=== PATIENT | female | born 1970 | race Asian ===

== ENCOUNTER 2016-08-25 10:14 | Inpatient (IN) | payer OTHER ==
[~2016-08-25] VITALS: Ht 157.5 cm; Wt 57.4 kg
[2016-08-25 10:52] LABS: MEAN CORPUSCULAR HEMOGLOBIN 29.9 pg (27.0-33.0); MEAN CORPUSCULAR HGB CONC 33.1 g/dl (32.0-36.5); MEAN CORPUSCULAR VOLUME 90.1 fl (80.0-96.0); RED CELL DISTRIBUTION WIDTH 12.5 % (11.5-14.5); WHITE BLOOD COUNT 4.2 K/mm3 (4.0-10.0)
[2016-08-25 11:03] LABS: CONTROL LINE INT CTR LINE PRESENT; METHADONE URINE NEGATIVE (NEGATIVE); TRICYCLIC ANTIDEPRESS URINE NEGATIVE (NEGATIVE)
[2016-08-25 11:11] LABS: CONTROL LINE HCG INT CTR LINE PRESENT
[2016-08-25 11:26] LABS: ALBUMIN 4.1 GM/DL (3.2-5.2); ALBUMIN/GLOBULIN RATIO 1.17 (1.00-1.93); ALKALINE PHOSPHATASE 51 U/L (45-117); ALT/SGPT 17 U/L (12-78); ANION GAP 4 MEQ/L (8-16); AST/SGOT 15 U/L (15-37); BILIRUBIN,DIRECT 0.1 MG/DL (0.0-0.2); BILIRUBIN,TOTAL 0.4 MG/DL (0.2-1.0); BLOOD UREA NITROGEN 8 MG/DL (7-18); CALCIUM LEVEL 8.8 MG/DL (8.5-10.1); CARBON DIOXIDE LEVEL 31 MEQ/L (21-32); CHLORIDE LEVEL 108 MEQ/L (98-107); CREATININE FOR GFR 0.77 MG/DL (0.55-1.02); GLOMERULAR FILTRATION RATE > 60.0 (>58); GLUCOSE, FASTING 84 MG/DL (70-105); POTASSIUM SERUM 4.1 MEQ/L (3.5-5.1); SODIUM LEVEL 143 MEQ/L (136-145); TOTAL PROTEIN 7.6 GM/DL (6.4-8.2)
[2016-08-25] MEDS ORDERED: VITATAB11 PO (13:14)
[2016-08-25] MEDS ORDERED: FISH1000 PO (13:14)
[2016-08-25] MEDS ORDERED: VITA-121 PO (13:14)
[2016-08-25] MEDS ORDERED: LEVO137T2 PO (13:14)
[2016-08-25] MEDS ORDERED: LOTR10CA PO (13:14)
[2016-08-25] MEDS ORDERED: BUPR300T34 PO (13:14)
--- NOTE | 2016-08-25 14:03 | EDDOCDS ---
Nurse's Notes [facility] Name: Bennie Hatfield Age: 45 yrs Sex: Female : 1970 Arrival Date: 08/25/2016 Time: 10:14 Bed [facility] Private MD: MARYLOU Villalobos Diagnosis: Adjustment disorder, unspecified Presentation: 08/25 10:17 Presenting complaint: Patient states: Depressed with suicidal thoughts. Mental Health mlb1 Triage Level: Level 2: The patient displays active suicidal ideations. Adult Sepsis Screening: The patient does not have new or worsening altered mentation. Patient's respiratory rate is less than 22. Systolic blood pressure is greater than 100. Patient has a qSOFA score of 0- Negative Sepsis Screen. Mental Health Triage Level: Level 2:. Suicide/Homicide risk assessment- The patient admits to and/or has been reported to be having suicidal ideations. The patient reports that he/she has not been admitted to an inpatient mental health facility in the last 30 days. The patient reports that he/she does not have a recent or current history of substance abuse. The patient reports that he/she has no prior history of suicide attempt and/or organized plan. The patient reports that he/she has not experienced a significant life altering event in the last 30 days. The patient reports that he/she lacks adequate social support. The patient reports he/she has no significant chronic medical condition(s). Status: The patient is a dependent. Transition of care: patient was not received from another setting of care. 10:17 Acuity: CORY Level 3 mlb1 10:17 Method Of Arrival: Walkin/Carried/Asstd mlb1 Triage Assessment: 10:20 General: Appears distressed, Behavior is anxious, cooperative. Pain: Denies pain. HIV mlb1 screening NA for this visit Offered previously. EDITOR DEPARTMENT: 10:20 LMP N/A - Irregular menses mlb1 Historical: - Allergies: SHELLFISH; - Home Meds: 1. Wellbutrin 300 mg Oral tab 1 tab daily 2. Synthroid 137 mcg Oral tab 1 tab once daily 3. Lotrel Unknown Oral once daily - PMHx: Depression; Hypothyroidism; Hypertension; - PSHx: Thyroidectomy; Cataract Surgery- Bilateral; - Social history: Smoking status: Patient uses tobacco products, current some day smoker. No barriers to communication noted, The patient speaks fluent Iranian, Speaks appropriately for age. - Family history: Not pertinent. - : The pt / caregiver states he / she is not on anticoagulants. Home medication list is obtained from the patient. - Exposure Risk Screening:: None identified. Screenin:47 Screening information is obtained from the patient. Fall risk: No risks identified. me3 Assistance ADL's: requires no assistance with activities of daily living. Abuse/DV Screen: The patient / caregiver reports he/she is:. Nutritional screening: No deficits noted. Advance Directives: Currently, there is no health care proxy. home support is adequate. Assessment: 10:46 General: Appears in no apparent distress, comfortable, Behavior is anxious, me3 cooperative, S/O at bedside. Respiratory: No deficits noted. Airway is patent Respiratory effort is even, unlabored, Respiratory pattern is regular. 11:41 General: Appears in no apparent distress, comfortable, Behavior is cooperative. me3 Respiratory: No deficits noted. Airway is patent Respiratory effort is even, unlabored. 12:27 General: Appears in no apparent distress, comfortable, Behavior is cooperative. me3 Respiratory: No deficits noted. Airway is patent Respiratory effort is even, unlabored. Derm: Skin is pink, warm & dry. 13:19 General: Appears in no apparent distress, comfortable, Behavior is appropriate for age, me3 cooperative. Respiratory: No deficits noted. Airway is patent Respiratory effort is even, unlabored. Derm: Skin is pink, warm & dry. Mental Health Eval: 11:43 Mental health consult is initiated at 11:30. Status: The patient is a ml4 dependent. [facility] Behavioral Health: The patient is not an established patient of [facility] Behavioral Health. Referral Information: Evaluation referral is generated by a relative; spouse, The patient was referred for evaluation because pt expressed SI (no plan) during a verbal altercation with spouse . Subjective: The patients chief complaint is pt states, "I'm here because my made me come in for suicidal thoughts." Pt reports over the past 2 months she's been having fleeting thoughts of suicide, however thoughts are becoming more severe. Admits losing her best friend Jul 01, 2016 and suspects it's from suicide, yet still investigating. She reports attempting to grieve, however feels trapped and states, "I just can't do it anymore". She notes having the urge to hang herself directly following friend's , but did not attempt. Other stressors are related to spouse who is currently in the process of being med-boarded out of the for PTSD. She feels she is not strong enough to support him and suicidal thoughts are becoming more persistent with no plan. Pt denies SI currently and states, "I'm just depressed." She denies wanting to follow-through her suicidal thoughts due to her children( ages 12 and 14) who keep her from killing herself. Children currently reside with their Father in [place]. . Delusions are denied. Patient's mood is depressed, Hallucinations are denied. Mental Health history: depression, Mental Health Admissions: None. Current Outpatient Mental Health Services: Psychiatrist / Agency: Dr. Roblero/Villalobos . previously seeking tx with Solomon Mac at [facility], however completed program successfully. . Current living environment is Family / Home Support: adequate with spouse The patient currently lives with his / her spouse, . The patient is . Patient presents to Emergency Department with the following symptoms within the past 2 weeks: agitation, anger, anxiety, depressed mood, feelings of helplessness/hopelessness, marital problem, poor impulse control, sleep disturbance - insomnia, suicidal ideation with no plan. Substance abuse: Patient uses tobacco less than a 1/2 a pack Frequency daily. Mental status exam: Patients appearance is appropriate, Patient's behavior is cooperative, Speech is normal. Affect is flat. Mood is appropriate. Hallucinations are denied. Appetite is normal. Memory is good. Energy level is normal. Content of thought is depressive. due to recent thoughts of suicide Thought process is intact. Cognitive level is oriented to person, place, time and situation Patient's insight is fair. Judgement is fair. Rapport with interviewer is good. Suicidal Ideation is not present. Homicidal ideation is denied. Disposition: Medically cleared for disposition by Kye Harman MD. Narrative: Awaiting psychiatric consult... 12:27 Disposition: Psychiatric Consult is performed by phone with Dr Ulises Guaman MD. [facility] ml4 Admission Criteria: The patient requires continuous observation and/or control to protect self, others or property. The patient's care requires a multi-modal treatment plan under close supervision and coordination due to the complexity and severity of the patient's symptoms. The patient requires administration and monitoring of psychoactive medications by skilled medical providers due to the side effects of the psychoactive medications or significant dosage adjustments. Legal Status: Patient's legal status will be Emergency admission: 39. [place] Safe Act: [place] Safe [place] is not applicable because the patient does not display any suicidal or homicidal ideations and does not pose a risk to self or others. DSM-V Differential Diagnosis: Adjustment Disorder (F43.2) unspecified (F43.20). Insurance Pre-Certification: Not Required, [employer] . Family Notification: Family notified of admission to [facility], Notification was given to Spouse . Narrative: Notice of Status and Rights, FAQ, and Bill of Rights was given at bedside. Awaiting: transfer to [facility]. Vital Signs: 10:16 BP 138 / 68; Pulse 77; Resp 16; Temp 96.9; Pulse Ox 100% ; Weight 58.06 kg; Height 5 cmb ft. 2 in. (157.48 cm); Pain 0/10; 14:01 BP 130 / 84; Pulse 68; Resp 16; Temp 99(TE); Pulse Ox 98% ; me3 10:16 Body Mass Index 23.41 (58.06 kg, 157.48 cm) b Vitals: 10:16 Log In Time: August 25, 2016 at 10:10. b ED Course: 10:15 Patient visited by Leigh Painting. cmb 10:15 Patient moved to Waiting cmb 10:16 Griselda [facility] is Private Physician. cmb 10:16 Patient visited by Khurram Grant RN. mlb1 10:16 RN notified that patient meets Red Flag criteria. cmb 10:18 Triage Initiated mlb1 10:21 Patient visited by Khurram Grant RN. mlb1 10:21 Patient moved to [facility] mlb1 10:22 Kye Harman MD is Attending Physician. br1 10:27 Pt greeted and oriented to ED. Patient advised of names of staff involved in care, pjf location of call augustine, wait times and NPO status. Accompanied by Family Member, Patient has correct armband on for positive identification. Placed in psych safe attire. Bed in low position. Call light in reach. Side rails up X 1. Security observing. Property removed, :prop. removal is pending the arrival of a female obs.. Door closed. Noise minimized. Visitors limited. Report received from rn - PSYCH. TRIAGE LEVEL #2, +SI, COOPERATIVE \\T\\ THIS TIME. The patient / caregiver is instructed regarding the plan of care and ED course. Psych Safety Check: Location: Psych Room. 10:32 Patient visited by Hugh Rodriguez Security Aide. pjf 10:45 Patient visited by Hugh Rodriguez Security Aide. pjf 10:45 Marina Joseph LPN is Primary Nurse. me3 10:45 Acetaminophen Level Sent. me3 10:45 Basic Metabolic Profile Sent. me3 10:45 Complete Blood Count Sent. me3 10:45 Drug Eval Toxicology ED Only Sent. me3 10:45 Ethyl Alcohol (ethanol) Sent. me3 10:45 HCG,Serum Qualitative Sent. me3 10:45 Liver Profile Sent. me3 10:45 Salicylate Level Sent. me3 10:46 Thyroid Stimulating Hormone Sent. me3 10:46 Labs drawn. (by ED staff). Sent per order to lab. Urine collected. Clean catch me3 specimen. Urine specimen sent to lab. 11:04 Patient visited by Hugh Rodriguez Security Aide. pjf 11:22 Patient visited by Hugh Rodriguez Security Aide. pjf 11:31 Patient visited by Hugh Rodriguez Security Aide. pjf 11:42 Patient visited by Hugh Rodriguez Security Aide. pjf 11:57 Patient visited by Hugh Rodriguez Security Aide. pjf 12:04 Patient visited by Kye Harman MD. br1 12:27 Patient visited by Marina Joseph LPN. me3 12:47 Patient visited by Hugh Rodriguez Security Aide. pjf 12:57 Ulises Guaman MD is Hospitalizing Provider. br1 13:04 Patient visited by Hugh Rodriguez Security Aide. pjf 13:14 [facility] Legal paperwork was scanned into [employer] and attached to record. ml4 13:15 Patient visited by Hugh Rodriguez Security Aide. pjf 13:21 Diet tray given. Warm blanket given. Pillow given. me3 13:24 [facility] Payment Agreement was scanned into [employer] and attached to record. lg 13:37 Patient visited by Hugh Rodriguez Security Aide. pjf 13:50 Patient visited by Hugh Rodriguez Security Aide. pjf 14:02 No IV's were initiated during this patient's visit. No procedures done that require me3 assistance. Attachments: 13:14 E Legal paperwork ml4 Order Results: Lab Order: Acetaminophen Level; SPEC'M 08/25/16 10:43 Test: ACETAMINOPHEN LEVEL; Value: < 2.0; Range: 10.0-30.0; Abnormal: Below low normal; Units: UG/ML; Status: F Lab Order: Basic Metabolic Profile; SPEC'M 08/25/16 10:43 Test: GLUCOSE, FASTING; Value: 84; Range: 70-105; Units: MG/DL; Status: F Test: BLOOD UREA NITROGEN; Value: 8; Range: 7-18; Units: MG/DL; Status: F Test: CREATININE FOR GFR; Value: 0.77; Range: 0.55-1.02; Units: MG/DL; Status: F Test: SODIUM LEVEL; Range: 136-145; Units: MEQ/L; Status: I Test: POTASSIUM SERUM; Range: 3.5-5.1; Units: MEQ/L; Status: I Test: CHLORIDE LEVEL; Range: 98-107; Units: MEQ/L; Status: I Test: CARBON DIOXIDE LEVEL; Range: 21-32; Units: MEQ/L; Status: I Test: ANION GAP; Range: 8-16; Units: MEQ/L; Status: I Test: CALCIUM LEVEL; Range: 8.5-10.1; Units: MG/DL; Status: I Test: GLOMERULAR FILTRATION RATE; Value: > 60.0; Range: >58; Status: F Test: SODIUM LEVEL; Value: 143; Range: 136-145; Units: MEQ/L; Status: F Test: POTASSIUM SERUM; Value: 4.1; Range: 3.5-5.1; Units: MEQ/L; Status: F Test: CHLORIDE LEVEL; Value: 108; Range: 98-107; Abnormal: Above high normal; Units: MEQ/L; Status: F Test: CARBON DIOXIDE LEVEL; Value: 31; Range: 21-32; Units: MEQ/L; Status: F Test: ANION GAP; Value: 4; Range: 8-16; Abnormal: Below low normal; Units: MEQ/L; Status: F Test: CALCIUM LEVEL; Value: 8.8; Range: 8.5-10.1; Units: MG/DL; Status: F Test Note: ; Units are mL/min/1.73 m2 Chronic Kidney Disease Staging per NKF: Stage I & II GFR >=60 Normal to Mildly Decreased Stage III GFR 30-59 Moderately Decreased Stage IV GFR 15-29 Severely Decreased Stage V GFR <15 Very Little GFR Left ESRD GFR <15 on PATTERNMAKER METAL Lab Order: Complete Blood Count; SPEC'M 08/25/16 10:43 Test: WHITE BLOOD COUNT; Value: 4.2; Range: 4.0-10.0; Units: K/mm3; Status: F Test: RED BLOOD COUNT; Value: 4.37; Range: 4.00-5.40; Units: M/mm3; Status: F Test: HEMOGLOBIN; Value: 13.1; Range: 12.0-16.0; Units: g/dl; Status: F Test: HEMATOCRIT; Value: 39.4; Range: 36.0-47.0; Units: %; Status: F Test: MEAN CORPUSCULAR VOLUME; Value: 90.1; Range: 80.0-96.0; Units: fl; Status: F Test: MEAN CORPUSCULAR HEMOGLOBIN; Value: 29.9; Range: 27.0-33.0; Units: pg; Status: F Test: MEAN CORPUSCULAR HGB CONC; Value: 33.1; Range: 32.0-36.5; Units: g/dl; Status: F Test: RED CELL DISTRIBUTION WIDTH; Value: 12.5; Range: 11.5-14.5; Units: %; Status: F Test: PLATELET COUNT, AUTOMATED; Value: 353; Range: 150-450; Units: k/mm3; Status: F Lab Order: Drug Eval Toxicology ED Only; SPEC'M 08/25/16 10:43 Test: AMPHETAMINES LEVEL URINE; Value: NEGATIVE; Range: NEGATIVE; Status: F Test: BARBITURATES URINE; Value: NEGATIVE; Range: NEGATIVE; Status: F Test: BENZODIAZEPINES URINE; Value: NEGATIVE; Range: NEGATIVE; Status: F Test: CANNABINOIDS URINE; Value: NEGATIVE; Range: NEGATIVE; Status: F Test: COCAINE METABOLITE URINE; Value: NEGATIVE; Range: NEGATIVE; Status: F Test: METHADONE URINE; Value: NEGATIVE; Range: NEGATIVE; Status: F Test: OPIATES URINE; Value: NEGATIVE; Range: NEGATIVE; Status: F Test: TRICYCLIC ANTIDEPRESS URINE; Value: NEGATIVE; Range: NEGATIVE; Status: F Test Note: ; ALL PRESUMPTIVE POSITIVE FINDINGS ARE UNCONFIRMED NORMAL VALUES THRESHOLD IN NG/ML AMPHETAMINES 1000 METHAMPHETAMINES 1000 BARBITURATES 300 BENZODIAZEPINES 300 CANNABINOIDS (THC) 50 COCAINE METABOLITE 300 METHADONE 300 OPIATES 300 PHENCYCLIDINE 25 TRICYCLIC ANTIDEPRESSANTS 1000 RESULTS ARE FOR MEDICAL PURPOSES ONLY. ALL URINE SPECIMENS WILL BE SAVED FOR 3 DAYS. IF CONFIRMATION OF A PRESUMPTIVE POSTIVE SCREEN RESULT IS DESIRED, CALL CHEMISTRY ([phone]) AND REQUEST URINE TO BE SENT TO REFERENCE LAB. FOR A LIST OF CLOSELY RELATED COMPOUNDS PLEASE CALL THE LAB. Lab Order: Ethyl Alcohol (ethanol); SPEC' 08/25/16 10:43 Test: ETHYL ALCOHOL (ETHANOL); Value: < 0.003; Range: 0.000-0.010; Units: %; Status: F Lab Order: HCG,Serum Qualitative; SPEC' 08/25/16 10:43 Test: HCG, SERUM QUALITATIVE; Value: NEGATIVE; Range: NEGATIVE; Status: F Lab Order: Liver Profile; SPEC' 08/25/16 10:43 Test: AST/SGOT; Value: 15; Range: 15-37; Units: U/L; Status: F Test: ALT/SGPT; Value: 17; Range: 12-78; Units: U/L; Status: F Test: ALKALINE PHOSPHATASE; Value: 51; Range: 45-117; Units: U/L; Status: F Test: BILIRUBIN,TOTAL; Value: 0.4; Range: 0.2-1.0; Units: MG/DL; Status: F Test: BILIRUBIN,DIRECT; Value: 0.1; Range: 0.0-0.2; Units: MG/DL; Status: F Test: TOTAL PROTEIN; Value: 7.6; Range: 6.4-8.2; Units: GM/DL; Status: F Test: ALBUMIN; Value: 4.1; Range: 3.2-5.2; Units: GM/DL; Status: F Test: ALBUMIN/GLOBULIN RATIO; Value: 1.17; Range: 1.00-1.93; Status: F Lab Order: Salicylate Level; SPEC'M 08/25/16 10:43 Test: SALICYLATE LEVEL; Value: 2.8; Range: 5.0-30.0; Abnormal: Below low normal; Units: MG/DL; Status: F Lab Order: Thyroid Stimulating Hormone; SPEC'M 08/25/16 10:43 Test: THYROID STIMULATING HORMONE; Value: 0.006; Range: 0.358-3.740; Abnormal: Below low normal; Units: uIU/ML; Status: F Outcome: 12:57 Decision to Hospitalize by Provider. br1 14:02 Discharge Assessment: patient administered narcotics - no. The following High Risk nm3 Discharge criteria are identified: None. Admitted to Psych accompanied by tech, via wheelchair, with chart. Condition: stable. No special radiology studies were completed. 14:03 Patient left the ED. me3 Signatures: Brian Casas, Reg Reg lg Jennifer, Hugh, Security Aide TavaresKhurram Casarez RN RN mlb1 Marina Joseph LPN LPN me3 Anna Lenz, PSA PSA ml4 Kye Harman MD MD br1 Leigh Painting cmjason Corrections: (The following items were deleted from the chart) 12:27 Disposition: Psychiatric Consult is performed by phone with Dr Vikas Guaman ml4 ml4 MTDD
--- NOTE | 2016-08-25 14:03 | EDDOCDS ---
Physician Documentation [facility] Name: Bennie Hatfield Age: 45 yrs Sex: Female : 1970 Arrival Date: 08/25/2016 Time: 10:14 Bed U2 Private MD: Griselda [facility] [place] [facility] Disposition: 08/25/16 12:57 Hospitalization ordered by Ulises Guaman for Inpatient Admission. Preliminary diagnosis is Adjustment disorder, unspecified. - Bed requested for Admit. - Status is Inpatient Admission. me3 - Condition is Stable. - Problem is new. - Symptoms are unchanged. Historical: - Allergies: SHELLFISH; - Home Meds: 1. Wellbutrin 300 mg Oral tab 1 tab daily 2. Synthroid 137 mcg Oral tab 1 tab once daily 3. Lotrel Unknown Oral once daily - PMHx: Depression; Hypothyroidism; Hypertension; - PSHx: Thyroidectomy; Cataract Surgery- Bilateral; - Social history: Smoking status: Patient uses tobacco products, current some day smoker. No barriers to communication noted, The patient speaks fluent Niuean, Speaks appropriately for age. - Family history: Not pertinent. - : The pt / caregiver states he / she is not on anticoagulants. Home medication list is obtained from the patient. - Exposure Risk Screening:: None identified. 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 2 in. (157.48 cm); Pain 0/10; 14:01 BP 130 / 84; Pulse 68; Resp 16; Temp 99(TE); Pulse Ox 98% ; me3 10:16 Body Mass Index 23.41 (58.06 kg, 157.48 cm) cmb MDM: 10:22 Consult PFS/PSA/Director Of Graduate Medical Education ordered. br1 10:22 Consult PFS/PSA/Director Of Graduate Medical Education: Patient's case requires discussion with on-call br1 Psychiatrist ordered. 10:22 PSA/PFS to call Nursing Compliance Attorney, to enter patient data on [place] Safe Act if patient br1 involuntarily admitted or transferred for SI or [place] ordered. 10:22 Confirm accurate psychiatric medication list and times of last dosage ordered. br1 10:22 Detain Pt Until Medically/PFS Cleared ordered. br1 10:23 Acetaminophen Level Ordered. EDMS 10:23 Basic Metabolic Profile Ordered. EDMS 10:23 Complete Blood Count Ordered. EDMS 10:23 Drug Eval Toxicology ED Only Ordered. EDMS 10:23 Ethyl Alcohol (ethanol) Ordered. EDMS 10:23 HCG,Serum Qualitative Ordered. EDMS 10:23 Liver Profile Ordered. EDMS 10:23 Salicylate Level Ordered. EDMS 10:23 Thyroid Stimulating Hormone Ordered. EDMS 10:53 REGULAR DIET PLASTIC QUINONES+DIET ordered. EDMS 12:14 Financial registration complete. lg 12:17 Consult PFS/PSA/Director Of Graduate Medical Education complete. ml4 12:17 Consult PFS/PSA/Director Of Graduate Medical Education: Patient's case requires discussion with on-call ml4 Psychiatrist complete. 12:17 PSA/PFS to call Nursing Compliance Attorney, to enter patient data on [place] Safe Act if patient ml4 involuntarily admitted or transferred for SI or [place] complete. 12:54 Acetaminophen Level Reviewed. br1 12:54 Basic Metabolic Profile Reviewed. br1 12:54 Salicylate Level Reviewed. br1 12:54 Thyroid Stimulating Hormone Reviewed. br1 12:54 Complete Blood Count Reviewed. br1 12:54 Drug Eval Toxicology ED Only Reviewed. br1 12:54 Ethyl Alcohol (ethanol) Reviewed. br1 12:54 HCG,Serum Qualitative Reviewed. br1 12:54 Liver Profile Reviewed. br1 12:56 BED REQUEST+ADM ordered. EDMS 13:12 Admit to [facility]: ordered. EDMS 13:13 REGULAR DIET ordered. EDMS 13:14 [facility] Legal paperwork was scanned into [employer] and attached to record. ml4 13:24 [facility] Payment Agreement was scanned into [employer] and attached to record. lg Signatures: Dispatcher [employer] EDMS Brian Casas, Reg Reg lg Khurram Grant RN RN mlb1 Marina Joseph LPN AUTOMOTIVE TIRE WORKER me3 Anna Lenz, PSA PSA ml4 Kye Harman MD MD br1 The chart was reviewed and I authenticate all verbal orders and agree with the evaluation and treatment provided.Attachments: 13:24 [facility] [place] Payment Agreement lg MTDD
[2016-08-25 14:21] VITALS: BP 134/91
[2016-08-25] MEDS: NICOTINE 7 MG/24 HR TRANSDERMAL TD SCH (15:31)
[2016-08-25] MEDS ORDERED: MAALOX 30 ML SUSP *UDC PO PRN (17:00)
[2016-08-25] MEDS ORDERED: ACETAMINOPHEN TAB 650MG DOSE (2X325MG) PO PRN (17:00)
[2016-08-25] MEDS ORDERED: traZODone 50 MG TAB PO PRN (17:00)
[2016-08-25] MEDS ORDERED: MOM 30ML SUSPENSION UDC PO PRN (17:00)
[2016-08-26] MEDS ORDERED: LEVOTHYROXINE 0.137 MG TAB (137MCG) PO SCH ×2 (06:00)
[2016-08-26 06:44] VITALS: BP 131/88
[2016-08-26] MEDS: NICOTINE 7 MG/24 HR TRANSDERMAL TD SCH (08:23)
[2016-08-26] MEDS: buPROPion **XL** TABLET 150MG (WELLBUTRIN XL) PO SCH (08:23)
[2016-08-26] MEDS: FLUoxetine 20 MG CAP PO SCH (08:23)
[2016-08-26] MEDS: OMEGA-3 1050MG CAPSULE PO SCH (08:24)
[2016-08-26] MEDS: amLODIPine 10 MG TAB PO SCH (08:24)
[2016-08-26] MEDS: BENAZEPRIL 20 MG TAB PO SCH (08:24)
[2016-08-26] MEDS: VITAMIN B COMPLEX/VIT C CAP PO SCH (08:24)
[2016-08-26] MEDS: VITAMIN D 1,000 INTERNATIONAL UNITS TABLET PO SCH (08:24)
--- NOTE | 2016-08-26 14:46 | HPEPDOC ---
[facility] History & Physical History and Physical DATE OF ADMISSION: Aug 25, 2016 at 14:12 Date of this interview: 08/26/16 CHIEF COMPLAINT: Patient with worsening depressive symptoms and recurrent recent SI. HISTORY OF THE PRESENT ILLNESS: Patient is a 45-year-old female with PPHx significant for depression and anxiety. Patient is brought to the [facility] ED for psychiatric eval at the behest of her . Patient has reported increased depression and SI w/o plan over the last 2 months. Patient has multiple psychosocial stressors including: the of her best friend in 07/2016. Patient's friend committed suicide and this has the patient contemplating the importance of life. Patient has history of 1 suicide attempt. At age 36yo, patient attempted to hang herself after her father left the family and disowned his family. Patient is seen at [facility]. She is a dependent. Patient 's has PTSD and is in the process of being med-boarded out of the . Patient reports not being able to be more supportive of him is also a stressor. On interview, patient reports intensity of depression today at 2/10. She reports this is down from 8/10 on admission. Patient points to the multiple people she had to talk things out with as helping see the mistakes in her interpretations and maladaptive behaviors. PAST PSYCHIATRIC HISTORY: Prior Psychiatric Disorder: none Outpatient Treatment: [facility] Suicidal/Self injurious: x1, at age 36yo after father left the family and disowned everyone Psychotropic Medication History: Wellbutrin 300mg currently, Fluoxetine in the past, pt reports hx of benefit. ALLERGIES: Please see below. HOME MEDICATIONS: Per record as follows: [facility] CARE PROVIDER: She goes [place] [facility] [place]. SOCIAL HISTORY: She is . 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 She has two children who live with their father in [place]. Ethyl alcohol (EtOH) once a year. Smokes one-half pack per day. Recreational drug use: None. PAST MEDICAL HISTORY: 1. Hypertension. 2. History of binge eating in the past. 3. Hypothyroidism. 4. Depression. PAST SURGICAL HISTORY: 1. Thyroidectomy in 2012. 2. Bilateral cataract surgery. VITAL SIGNS: wnl LABORATORY DATA: Please see below. MENTAL STATUS EXAMINATION: Patient is a 45-year old female, who is pleasant, cooperative, well kempt, [thin , in NAD Speech: [normal] in rate, volume, and articulation, and is [coherent] and [ spontaneous]. Language skills are [intact]. Thought processes: [Clear/Goal directed]. Thought content: [logical]. Description of abnormal or psychotic thoughts: [No hallucinations, delusions, preoccupation with violence, homicidal or suicidal ideation, and obsessions]. Judgment: [fair]. Insight:fair. Orientation to [time, place and person]. Recent and remote memory: [intact] Attention span and concentration: good. Language: [Normal]. Fund of knowledge: good]. Mood: dysthymic Affect: dysthymic Assessment: MDD, R,S w/o PFs INITIAL TREATMENT PLAN: 1. Patient was admitted on a [9.39] legal status. 2. Complete history was obtained. 3. With patients permission, family will be contacted and database will be expanded. 4. Patient to continue on Wellbutrin 300mg po qam as patient reports benefit. Patient gives informed consent to start Prozac 20mg po qam for Serotonin reuptake inhibition for anxiety/mood. 5. Patient will be provided with protected environment. 6. Patient will be treated with individual, group, and milieu therapies. 7. Patient will receive supportive psych-education. 8. Discharge planning will commence immediately. 9. Outpatient follow-up treatment will be strongly recommended. 10. The initial treatment plan will focus initially on: * Depression. * Risk for suicide. * Substance abuse. ESTIMATED LENGTH OF STAY: [5]-[7] DAYS. TIME SPENT COUNSELING AND COORDINATING INITIAL CARE: [60] minutes. Medications Scheduled (Lotrel 10-20 mg) Unknown Strength Cap Unknown Dose PO QHS (Reported) B1/B2/B3/B5/B6 (Vitamin B Complex) 1 Tab Tab 1 TAB PO QHS (Reported) Bupropion HCl (Bupropion HCl Xl) 300 Mg Tab 300 MG PO DAILY (Reported) Cholecalciferol (Vitamin D-3) 1,000 Unit Tab 1,000 UNIT PO DAILY (Reported) Fish Oil (Fish Oil) 1,000 Mg Cap 1,000 MG PO DAILY (Reported) Levothyroxine Sodium (Synthroid) 137 Mcg Tab 137 MCG PO QAM (Reported) Allergies Coded Allergies: Shellfish Allergy (Verified Allergy, Unknown, 08/25/16) MAURICIO HOWARD MD Aug 26, 2016 14:46
[2016-08-26 18:00] VITALS: BP 119/70
--- NOTE | 2016-08-27 03:18 | HPE ---
DATE OF ADMISSION: 08/25/2016 HISTORY OF PRESENT ILLNESS: Please refer to psychiatric history and evaluation for further details on this admission. This examination and history is intended for medical issues, which may need treatment, followup or consult on this 45-year-old female. ALLERGIES: SHELLFISH. PRIMARY CARE PROVIDER: She goes to [facility] [place]. SOCIAL HISTORY: She is . 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 She has two children who live with their father in [place]. Ethyl alcohol (EtOH) once a year. Smokes one-half pack per day. Recreational drug use: None. PAST MEDICAL HISTORY: 1. Hypertension. 2. History of binge eating in the past. 3. Hypothyroidism. 4. Depression. PAST SURGICAL HISTORY: 1. Thyroidectomy in 2012. 2. Bilateral cataract surgery. LABORATORY STUDIES: CBC is normal. Sodium 143, potassium 4.1, chloride 108, CO2 31, BUN 8, creatinine 0.71. TSH is 0.006. Toxicology screen is negative. She states approximately 4 or 5 months ago they lowered her levothyroxine as her TSH was low. I discussed with her today we would be lowering it again to 125. She would need repeat TSH and T4 in 6 weeks. She verbalized agreement and understanding. HOME MEDICATIONS: - bupropion XL 300 mg by mouth daily - vitamin B complex one by mouth daily - vitamin D3 1000 units by mouth daily - fish oil 1000 mg by mouth daily - levothyroxine 137 mcg by mouth daily - Lotrel 10/20 one by mouth daily FAMILY HISTORY: Noncontributory. REVIEW OF SYSTEMS: Unremarkable except for occasional eczema for which she uses lotion. Otherwise, no complaints. TSH was low, will adjust dose as discussed above. PHYSICAL EXAMINATION: 45-year-old cooperative female in no acute distress. Height 62 inches, weight 58.06 kg, body mass index (BMI) 23.4. Blood pressure 131/80, pulse 70, respirations 18, temperature 96.8. Patient is alert and oriented times three. Pupils equal and react to light. Extraocular muscles intact. Cornea and sclerae clear. Conjunctivae were normal. No facial asymmetry. Pharynx, tongue and gums pink and moist. Tongue is midline. Tongue is pierced. Neck is supple without lymphadenopathy. No thyromegaly, no goiter. Chest clear to auscultation without wheeze or retraction. Heart is regular. Abdomen is benign. Bowel sounds positive. Right lower quadrant small patch of eczema. No redness or drainage. Dry, scaly. Genitourinary/rectal: Not done. Extremities: No cyanosis, clubbing or edema. Gait steady. Peripheral pulses equal and palpable bilaterally. Skin is warm and dry. Small eczematous patch as noted above. IMPRESSION/PLAN: 1. Psychiatric plan per psychiatry. 2. History of hypertension, continue Lotrel 04/19. 3. Hypothyroidism, TSH is 0.006, will decrease levothyroxine to 125 mcg by mouth daily. Will need a TSH and free T4 in 6 weeks. 4. Smoking cessation, nicotine patch offered.
[2016-08-27] MEDS: LEVOTHYROXINE 0.125 MG TAB (125 MCG) PO SCH (06:06)
[2016-08-27 06:50] VITALS: BP 129/82
[2016-08-27 07:26] LABS: THYROXINE (T4) 12.3 UG/DL (4.5-12.0)
[2016-08-27] MEDS: FLUoxetine 20 MG CAP PO SCH (08:28)
[2016-08-27] MEDS: VITAMIN B COMPLEX/VIT C CAP PO SCH (08:29)
[2016-08-27] MEDS: VITAMIN D 1,000 INTERNATIONAL UNITS TABLET PO SCH (08:29)
[2016-08-27] MEDS: OMEGA-3 1050MG CAPSULE PO SCH (08:29)
[2016-08-27] MEDS: amLODIPine 10 MG TAB PO SCH (08:29)
[2016-08-27] MEDS: BENAZEPRIL 20 MG TAB PO SCH (08:29)
[2016-08-27] MEDS: NICOTINE 7 MG/24 HR TRANSDERMAL TD SCH (08:29)
[2016-08-27] MEDS: buPROPion **XL** TABLET 150MG (WELLBUTRIN XL) PO SCH (08:29)
--- NOTE | 2016-08-27 15:04 | EDDOCDS ---
Physician Documentation [facility] Name: Bennie Hatfield Age: 45 yrs Sex: Female : 1970 Arrival Date: 08/25/2016 Time: 10:14 Bed U2 Private MD: [place]isel[place] [facility] [place]position: 08/25/16 12:57 Hospitalization ordered by Ulises Guaman for Inpatient Admission. Preliminary diagnosis is Adjustment disorder, unspecified. - Bed requested for Admit. - Status is Inpatient Admission. me3 - Condition is Stable. - Problem is new. - Symptoms are unchanged. Historical: - Allergies: SHELLFISH; - Home Meds: 1. Wellbutrin 300 mg Oral tab 1 tab daily 2. Synthroid 137 mcg Oral tab 1 tab once daily 3. Lotrel Unknown Oral once daily - PMHx: Depression; Hypothyroidism; Hypertension; - PSHx: Thyroidectomy; Cataract Surgery- Bilateral; - Social history: Smoking status: Patient uses tobacco products, current some day smoker. No barriers to communication noted, The patient speaks fluent Zambian, Speaks appropriately for age. - Family history: Not pertinent. - : The pt / caregiver states he / she is not on anticoagulants. Home medication list is obtained from the patient. - Exposure Risk Screening:: None identified. ENVIRONMENTAL HEALTH AND SAFETY MANAGER: 08/25 10:20 LMP N/A - Irregular menses mlb1 Vital Signs: 10:16 BP 138 / 68; Pulse 77; Resp 16; Temp 96.9; Pulse Ox 100% ; Weight 58.06 kg / 128 lbs; cmb Height 5 ft. 2 in. (157.48 cm); Pain 0/10; 14:01 BP 130 / 84; Pulse 68; Resp 16; Temp 99(TE); Pulse Ox 98% ; me3 10:16 Body Mass Index 23.41 (58.06 kg, 157.48 cm) cmb MDM: 10:22 Consult PFS/PSA/Lumber Stacker Operator ordered. br1 10:22 Consult PFS/PSA/Lumber Stacker Operator: Patient's case requires discussion with on-call br1 Psychiatrist ordered. 10:22 PSA/PFS to call Nursing Technical Systems Architect, to enter patient data on [place] Safe Act if patient br1 involuntarily admitted or transferred for SI or HI ordered. 10:22 Confirm accurate psychiatric medication list and times of last dosage ordered. br1 10:22 Detain Pt Until Medically/PFS Cleared ordered. br1 10:23 Acetaminophen Level Ordered. EDMS 10:23 Basic Metabolic Profile Ordered. EDMS 10:23 Complete Blood Count Ordered. EDMS 10:23 Drug Eval Toxicology ED Only Ordered. EDMS 10:23 Ethyl Alcohol (ethanol) Ordered. EDMS 10:23 HCG,Serum Qualitative Ordered. EDMS 10:23 Liver Profile Ordered. EDMS 10:23 Salicylate Level Ordered. EDMS 10:23 Thyroid Stimulating Hormone Ordered. EDMS 10:53 REGULAR DIET PLASTIC QUINONES+DIET ordered. EDMS 12:14 Financial registration complete. lg 12:17 Consult PFS/PSA/Lumber Stacker Operator complete. ml4 12:17 Consult PFS/PSA/Lumber Stacker Operator: Patient's case requires discussion with on-call ml4 Psychiatrist complete. 12:17 PSA/PFS to call Nursing Technical Systems Architect, to enter patient data on [place] Safe Act if patient ml4 involuntarily admitted or transferred for SI or HI complete. 12:54 Acetaminophen Level Reviewed. br1 12:54 Basic Metabolic Profile Reviewed. br1 12:54 Salicylate Level Reviewed. br1 12:54 Thyroid Stimulating Hormone Reviewed. br1 12:54 Complete Blood Count Reviewed. br1 12:54 Drug Eval Toxicology ED Only Reviewed. br1 12:54 Ethyl Alcohol (ethanol) Reviewed. br1 12:54 HCG,Serum Qualitative Reviewed. br1 12:54 Liver Profile Reviewed. br1 12:56 BED REQUEST+ADM ordered. EDMS 13:12 Admit to [facility]: ordered. EDMS 13:13 REGULAR DIET ordered. EDMS 13:14 [facility] Legal paperwork was scanned into SpinNote and attached to record. ml4 13:24 [facility] Payment Agreement was scanned into SpinNote and attached to record. lg 15:26 T-Sheet-- Draft Copy was scanned into SpinNote and attached to record. klr Signatures: Dispatcher [employer] EDMS Brian aCsas, Markus Reg lg Khurram Grant RN RN mlb1 Marina JosephHARD TILE SETTER HARD TILE SETTER me3 Anna Lenz, PSA PSA ml4 Kye Harman MD MD br1 Aleena Sun klr The chart was reviewed and I authenticate all verbal orders and agree with the evaluation and treatment provided.Attachments: 13:24 [facility] Payment Agreement lg 15:26 T-Sheet-- Draft Copy klr Chart Complete MTDD
--- NOTE | 2016-08-27 15:04 | EDDOCDS ---
Physician Documentation [facility] Name: Bennie Hatfield Age: 45 yrs Sex: Female : 1970 Arrival Date: 08/25/2016 Time: 10:14 Bed U2 Private MD: [place] [facility] [place]: 08/25/16 12:57 Hospitalization ordered by Ulises Guaman for Inpatient Admission. Preliminary diagnosis is Adjustment disorder, unspecified. - Bed requested for Admit. - Status is Inpatient Admission. me3 - Condition is Stable. - Problem is new. - Symptoms are unchanged. Historical: - Allergies: SHELLFISH; - Home Meds: 1. Wellbutrin 300 mg Oral tab 1 tab daily 2. Synthroid 137 mcg Oral tab 1 tab once daily 3. Lotrel Unknown Oral once daily - PMHx: Depression; Hypothyroidism; Hypertension; - PSHx: Thyroidectomy; Cataract Surgery- Bilateral; - Social history: Smoking status: Patient uses tobacco products, current some day smoker. No barriers to communication noted, The patient speaks fluent Bolivian, Speaks appropriately for age. - Family history: Not pertinent. - : The pt / caregiver states he / she is not on anticoagulants. Home medication list is obtained from the patient. - Exposure Risk Screening:: None identified. PRECISION GRINDER: 08/25 10:20 LMP N/A - Irregular menses mlb1 Vital Signs: 10:16 BP 138 / 68; Pulse 77; Resp 16; Temp 96.9; Pulse Ox 100% ; Weight 58.06 kg / 128 lbs; cmb Height 5 ft. 2 in. (157.48 cm); Pain 0/10; 14:01 BP 130 / 84; Pulse 68; Resp 16; Temp 99(TE); Pulse Ox 98% ; me3 10:16 Body Mass Index 23.41 (58.06 kg, 157.48 cm) cmb MDM: 10:22 Consult PFS/PSA/Inside Sales Trainer ordered. br1 10:22 Consult PFS/PSA/Inside Sales Trainer: Patient's case requires discussion with on-call br1 Psychiatrist ordered. 10:22 PSA/PFS to call Nursing Diesel Engineer, to enter patient data [place] Safe [place] if patient br1 involuntarily admitted or transferred for SI or HI ordered. 10:22 Confirm accurate psychiatric medication list and times of last dosage ordered. br1 10:22 Detain Pt Until Medically/PFS Cleared ordered. br1 10:23 Acetaminophen Level Ordered. EDMS 10:23 Basic Metabolic Profile Ordered. EDMS 10:23 Complete Blood Count Ordered. EDMS 10:23 Drug Eval Toxicology ED Only Ordered. EDMS 10:23 Ethyl Alcohol (ethanol) Ordered. EDMS 10:23 HCG,Serum Qualitative Ordered. EDMS 10:23 Liver Profile Ordered. EDMS 10:23 Salicylate Level Ordered. EDMS 10:23 Thyroid Stimulating Hormone Ordered. EDMS 10:53 REGULAR DIET PLASTIC QUINONES+DIET ordered. EDMS 12:14 Financial registration complete. lg 12:17 Consult PFS/PSA/Inside Sales Trainer complete. ml4 12:17 Consult PFS/PSA/Inside Sales Trainer: Patient's case requires discussion with on-call ml4 Psychiatrist complete. 12:17 PSA/PFS to call Nursing Diesel Engineer, to enter patient data on [place] Safe Act if patient ml4 involuntarily admitted or transferred for SI or HI complete. 12:54 Acetaminophen Level Reviewed. br1 12:54 Basic Metabolic Profile Reviewed. br1 12:54 Salicylate Level Reviewed. br1 12:54 Thyroid Stimulating Hormone Reviewed. br1 12:54 Complete Blood Count Reviewed. br1 12:54 Drug Eval Toxicology ED Only Reviewed. br1 12:54 Ethyl Alcohol (ethanol) Reviewed. br1 12:54 HCG,Serum Qualitative Reviewed. br1 12:54 Liver Profile Reviewed. br1 12:56 BED REQUEST+ADM ordered. EDMS 13:12 Admit to [facility]: ordered. EDMS 13:13 REGULAR DIET ordered. EDMS 13:14 [facility] Legal paperwork was scanned into [employer] and attached to record. ml4 13:24 [facility] [place] Agreement was scanned into [employer] and attached to record. lg 15:26 T-Sheet-- Draft Copy was scanned into [employer] and attached to record. klr Signatures: Dispatcher [employer] EDMS Brian Casas, Markus Reg lg Khurram Grant RN RN mlb1 Marina JosephCAGE MAKER CAGE MAKER me3 Anna Lenz, PSA PSA ml4 Kye Harman MD MD br1 Aleena Sun klr The chart was reviewed and I authenticate all verbal orders and agree with the evaluation and treatment provided.Attachments: 13:24 [facility] Payment Agreement lg 15:26 T-Sheet-- Draft Copy klr Chart Complete MTDD
--- NOTE | 2016-08-27 15:04 | EDDOCDS ---
Nurse's Notes [facility] Name: Bennie Hatfield Age: 45 yrs Sex: Female : 1970 Arrival Date: 08/25/2016 Time: 10:14 Bed [facility] Private MD: MARYLOU Villalobos Diagnosis: Adjustment disorder, unspecified Presentation: 08/25 10:17 Presenting complaint: Patient states: Depressed with suicidal thoughts. Mental Health mlb1 Triage Level: Level 2: The patient displays active suicidal ideations. Adult Sepsis Screening: The patient does not have new or worsening altered mentation. Patient's respiratory rate is less than 22. Systolic blood pressure is greater than 100. Patient has a qSOFA score of 0- Negative Sepsis Screen. Mental Health Triage Level: Level 2:. Suicide/Homicide risk assessment- The patient admits to and/or has been reported to be having suicidal ideations. The patient reports that he/she has not been admitted to an inpatient mental health facility in the last 30 days. The patient reports that he/she does not have a recent or current history of substance abuse. The patient reports that he/she has no prior history of suicide attempt and/or organized plan. The patient reports that he/she has not experienced a significant life altering event in the last 30 days. The patient reports that he/she lacks adequate social support. The patient reports he/she has no significant chronic medical condition(s). Status: The patient is a dependent. Transition of care: patient was not received from another setting of care. 10:17 Acuity: CORY Level 3 mlb1 10:17 Method Of Arrival: Walkin/Carried/Asstd mlb1 Triage Assessment: 10:20 General: Appears distressed, Behavior is anxious, cooperative. Pain: Denies pain. HIV mlb1 screening NA for this visit Offered previously. 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 Wellbutrin 300 mg Oral tab 1 tab daily 2. Synthroid 137 mcg Oral tab 1 tab once daily 3. Lotrel Unknown Oral once daily - PMHx: Depression; Hypothyroidism; Hypertension; - PSHx: Thyroidectomy; Cataract Surgery- Bilateral; - Social history: Smoking status: Patient uses tobacco products, current some day smoker. No barriers to communication noted, The patient speaks fluent Norwegian, Speaks appropriately for age. - Family history: Not pertinent. - : The pt / caregiver states he / she is not on anticoagulants. Home medication list is obtained from the patient. - Exposure Risk Screening:: None identified. Screenin:47 Screening information is obtained from the patient. Fall risk: No risks identified. me3 Assistance ADL's: requires no assistance with activities of daily living. Abuse/DV Screen: The patient / caregiver reports he/she is:. Nutritional screening: No deficits noted. Advance Directives: Currently, there is no health care proxy. home support is adequate. Assessment: 10:46 General: Appears in no apparent distress, comfortable, Behavior is anxious, me3 cooperative, S/O at bedside. Respiratory: No deficits noted. Airway is patent Respiratory effort is even, unlabored, Respiratory pattern is regular. 11:41 General: Appears in no apparent distress, comfortable, Behavior is cooperative. me3 Respiratory: No deficits noted. Airway is patent Respiratory effort is even, unlabored. 12:27 General: Appears in no apparent distress, comfortable, Behavior is cooperative. me3 Respiratory: No deficits noted. Airway is patent Respiratory effort is even, unlabored. Derm: Skin is pink, warm & dry. 13:19 General: Appears in no apparent distress, comfortable, Behavior is appropriate for age, me3 cooperative. Respiratory: No deficits noted. Airway is patent Respiratory effort is even, unlabored. Derm: Skin is pink, warm & dry. Mental Health Eval: 11:43 Mental health consult is initiated at 11:30. Status: The patient is a ml4 dependent. [facility] Behavioral Health: The patient is not an established patient of [facility] Behavioral Health. Referral Information: Evaluation referral is generated by a relative; spouse, The patient was referred for evaluation because pt expressed SI (no plan) during a verbal altercation with spouse . Subjective: The patients chief complaint is pt states, "I'm here because my made me come in for suicidal thoughts." Pt reports over the past 2 months she's been having fleeting thoughts of suicide, however thoughts are becoming more severe. Admits losing her best friend Jul 01, 2016 and suspects it's from suicide, yet still investigating. She reports attempting to grieve, however feels trapped and states, "I just can't do it anymore". She notes having the urge to hang herself directly following friend's , but did not attempt. Other stressors are related to spouse who is currently in the process of being med-boarded out of the for PTSD. She feels she is not strong enough to support him and suicidal thoughts are becoming more persistent with no plan. Pt denies SI currently and states, "I'm just depressed." She denies wanting to follow-through her suicidal thoughts due to her children( ages 12 and 14) who keep her from killing herself. Children currently reside with their Father in [place]. . Delusions are denied. Patient's mood is depressed, Hallucinations are denied. Mental Health history: depression, Mental Health Admissions: None. Current Outpatient Mental Health Services: Psychiatrist / Agency: Dr. Roblero/Villalobos . previously seeking tx with Solomon [facility] at [place], however completed program successfully. . Current living environment is Family / Home Support: adequate with spouse The patient currently lives with his / her spouse, . The patient is . Patient presents to Emergency Department with the following symptoms within the past 2 weeks: agitation, anger, anxiety, depressed mood, feelings of helplessness/hopelessness, marital problem, poor impulse control, sleep disturbance - insomnia, suicidal ideation with no plan. Substance abuse: Patient uses tobacco less than a 1/2 a pack Frequency daily. Mental status exam: Patients appearance is appropriate, Patient's behavior is cooperative, Speech is normal. Affect is flat. Mood is appropriate. Hallucinations are denied. Appetite is normal. Memory is good. Energy level is normal. Content of thought is depressive. due to recent thoughts of suicide Thought process is intact. Cognitive level is oriented to person, place, time and situation Patient's insight is fair. Judgement is fair. Rapport with interviewer is good. Suicidal Ideation is not present. Homicidal ideation is denied. Disposition: Medically cleared for disposition by Kye Harman MD. Narrative: Awaiting psychiatric consult... 12:27 Disposition: Psychiatric Consult is performed by phone with Dr Ulises Guaman MD. [facility] ml4 Admission Criteria: The patient requires continuous observation and/or control to protect self, others or property. The patient's care requires a multi-modal treatment plan under close supervision and coordination due to the complexity and severity of the patient's symptoms. The patient requires administration and monitoring of psychoactive medications by skilled medical providers due to the side effects of the psychoactive medications or significant dosage adjustments. Legal Status: Patient's legal status will be Emergency admission: 39. [place] Safe Act: [place] Safe Act is not applicable because the patient does not display any suicidal or homicidal ideations and does not pose a risk to self or others. DSM-V Differential Diagnosis: Adjustment Disorder (F43.2) unspecified (F43.20). Insurance Pre-Certification: Not Required, [employer] . Family Notification: Family notified of admission to [facility], Notification was given to Spouse . Narrative: Notice of Status and Rights, FAQ, and Bill of Rights was given at bedside. Awaiting: transfer to [facility]. Vital Signs: 10:16 BP 138 / 68; Pulse 77; Resp 16; Temp 96.9; Pulse Ox 100% ; Weight 58.06 kg; Height 5 cmb ft. 2 in. (157.48 cm); Pain 0/10; 14:01 BP 130 / 84; Pulse 68; Resp 16; Temp 99(TE); Pulse Ox 98% ; me3 10:16 Body Mass Index 23.41 (58.06 kg, 157.48 cm) b Vitals: 10:16 Log In Time: August 25, 2016 at 10:10. b ED Course: 10:15 Patient visited by Leigh Painting. cmb 10:15 Patient moved to Waiting cmb 10:16 Griselda [facility] is Private Physician. cmb 10:16 Patient visited by Khurram Grant RN. mlb1 10:16 RN notified that patient meets Red Flag criteria. cmb 10:18 Triage Initiated mlb1 10:21 Patient visited by Khurram Grant RN. mlb1 10:21 Patient moved to [facility] mlb1 10:22 Kye Harman MD is Attending Physician. br1 10:27 Pt greeted and oriented to ED. Patient advised of names of staff involved in care, pjf location of call augustine, wait times and NPO status. Accompanied by Family Member, Patient has correct armband on for positive identification. Placed in psych safe attire. Bed in low position. Call light in reach. Side rails up X 1. Security observing. Property removed, :prop. removal is pending the arrival of a female obs.. Door closed. Noise minimized. Visitors limited. Report received from rn - PSYCH. TRIAGE LEVEL #2, +SI, COOPERATIVE \\T\\ THIS TIME. The patient / caregiver is instructed regarding the plan of care and ED course. Psych Safety Check: Location: Psych Room. 10:32 Patient visited by Hugh Rodriguez Security Aide. pjf 10:45 Patient visited by Hugh Rodriguez Security Aide. pjf 10:45 Marina Joseph LPN is Primary Nurse. me3 10:45 Acetaminophen Level Sent. me3 10:45 Basic Metabolic Profile Sent. me3 10:45 Complete Blood Count Sent. me3 10:45 Drug Eval Toxicology ED Only Sent. me3 10:45 Ethyl Alcohol (ethanol) Sent. me3 10:45 HCG,Serum Qualitative Sent. me3 10:45 Liver Profile Sent. me3 10:45 Salicylate Level Sent. me3 10:46 Thyroid Stimulating Hormone Sent. me3 10:46 Labs drawn. (by ED staff). Sent per order to lab. Urine collected. Clean catch me3 specimen. Urine specimen sent to lab. 11:04 Patient visited by Hugh Rodriguez Security Aide. pjf 11:22 Patient visited by Hugh Rodriguez Security Aide. pjf 11:31 Patient visited by Hugh Rodriguez Security Aide. pjf 11:42 Patient visited by Hugh Rodriguez Security Aide. pjf 11:57 Patient visited by Hugh Rodriguez Security Aide. pjf 12:04 Patient visited by Kye Harman MD. br1 12:27 Patient visited by Marina Joseph LPN. me3 12:47 Patient visited by Hugh Rodriguez Security Aide. pjf 12:57 Ulises Guaman MD is Hospitalizing Provider. br1 13:04 Patient visited by Hugh Rodriguez Security Aide. pjf 13:14 [facility] Legal paperwork was scanned into [employer] and attached to record. ml4 13:15 Patient visited by Hugh Rodriguez Security Aide. pjf 13:21 Diet tray given. Warm blanket given. Pillow given. me3 13:24 [facility] Payment Agreement was scanned into [employer] and attached to record. lg 13:37 Patient visited by Hugh Rodriguez Security Aide. pjf 13:50 Patient visited by Hugh Rodriguez Security Aide. pjf 14:02 No IV's were initiated during this patient's visit. No procedures done that require me3 assistance. 15:26 T-Sheet-- Draft Copy was scanned into [employer] and attached to record. klr Attachments: 13:14 E Legal paperwork ml4 Order Results: Lab Order: Acetaminophen Level; SPEC'M 08/25/16 10:43 Test: ACETAMINOPHEN LEVEL; Value: < 2.0; Range: 10.0-30.0; Abnormal: Below low normal; Units: UG/ML; Status: F Lab Order: Basic Metabolic Profile; SPEC'M 08/25/16 10:43 Test: GLUCOSE, FASTING; Value: 84; Range: 70-105; Units: MG/DL; Status: F Test: BLOOD UREA NITROGEN; Value: 8; Range: 7-18; Units: MG/DL; Status: F Test: CREATININE FOR GFR; Value: 0.77; Range: 0.55-1.02; Units: MG/DL; Status: F Test: SODIUM LEVEL; Range: 136-145; Units: MEQ/L; Status: I Test: POTASSIUM SERUM; Range: 3.5-5.1; Units: MEQ/L; Status: I Test: CHLORIDE LEVEL; Range: 98-107; Units: MEQ/L; Status: I Test: CARBON DIOXIDE LEVEL; Range: 21-32; Units: MEQ/L; Status: I Test: ANION GAP; Range: 8-16; Units: MEQ/L; Status: I Test: CALCIUM LEVEL; Range: 8.5-10.1; Units: MG/DL; Status: I Test: GLOMERULAR FILTRATION RATE; Value: > 60.0; Range: >58; Status: F Test: SODIUM LEVEL; Value: 143; Range: 136-145; Units: MEQ/L; Status: F Test: POTASSIUM SERUM; Value: 4.1; Range: 3.5-5.1; Units: MEQ/L; Status: F Test: CHLORIDE LEVEL; Value: 108; Range: 98-107; Abnormal: Above high normal; Units: MEQ/L; Status: F Test: CARBON DIOXIDE LEVEL; Value: 31; Range: 21-32; Units: MEQ/L; Status: F Test: ANION GAP; Value: 4; Range: 8-16; Abnormal: Below low normal; Units: MEQ/L; Status: F Test: CALCIUM LEVEL; Value: 8.8; Range: 8.5-10.1; Units: MG/DL; Status: F Test Note: ; Units are mL/min/1.73 m2 Chronic Kidney Disease Staging per NKF: Stage I & II GFR >=60 Normal to Mildly Decreased Stage III GFR 30-59 Moderately Decreased Stage IV GFR 15-29 Severely Decreased Stage V GFR <15 Very Little GFR Left ESRD GFR <15 on 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 Lab Order: Complete Blood Count; SPEC'M 08/25/16 10:43 Test: WHITE BLOOD COUNT; Value: 4.2; Range: 4.0-10.0; Units: K/mm3; Status: F Test: RED BLOOD COUNT; Value: 4.37; Range: 4.00-5.40; Units: M/mm3; Status: F Test: HEMOGLOBIN; Value: 13.1; Range: 12.0-16.0; Units: g/dl; Status: F Test: HEMATOCRIT; Value: 39.4; Range: 36.0-47.0; Units: %; Status: F Test: MEAN CORPUSCULAR VOLUME; Value: 90.1; Range: 80.0-96.0; Units: fl; Status: F Test: MEAN CORPUSCULAR HEMOGLOBIN; Value: 29.9; Range: 27.0-33.0; Units: pg; Status: F Test: MEAN CORPUSCULAR HGB CONC; Value: 33.1; Range: 32.0-36.5; Units: g/dl; Status: F Test: RED CELL DISTRIBUTION WIDTH; Value: 12.5; Range: 11.5-14.5; Units: %; Status: F Test: PLATELET COUNT, AUTOMATED; Value: 353; Range: 150-450; Units: k/mm3; Status: F Lab Order: Drug Eval Toxicology ED Only; SPEC'M 08/25/16 10:43 Test: AMPHETAMINES LEVEL URINE; Value: NEGATIVE; Range: NEGATIVE; Status: F Test: BARBITURATES URINE; Value: NEGATIVE; Range: NEGATIVE; Status: F Test: BENZODIAZEPINES URINE; Value: NEGATIVE; Range: NEGATIVE; Status: F Test: CANNABINOIDS URINE; Value: NEGATIVE; Range: NEGATIVE; Status: F Test: COCAINE METABOLITE URINE; Value: NEGATIVE; Range: NEGATIVE; Status: F Test: METHADONE URINE; Value: NEGATIVE; Range: NEGATIVE; Status: F Test: OPIATES URINE; Value: NEGATIVE; Range: NEGATIVE; Status: F Test: TRICYCLIC ANTIDEPRESS URINE; Value: NEGATIVE; Range: NEGATIVE; Status: F Test Note: ; ALL PRESUMPTIVE POSITIVE FINDINGS ARE UNCONFIRMED NORMAL VALUES THRESHOLD IN NG/ML AMPHETAMINES 1000 METHAMPHETAMINES 1000 BARBITURATES 300 BENZODIAZEPINES 300 CANNABINOIDS (THC) 50 COCAINE METABOLITE 300 METHADONE 300 OPIATES 300 PHENCYCLIDINE 25 TRICYCLIC ANTIDEPRESSANTS 1000 RESULTS ARE FOR MEDICAL PURPOSES ONLY. ALL URINE SPECIMENS WILL BE SAVED FOR 3 DAYS. IF CONFIRMATION OF A PRESUMPTIVE POSTIVE SCREEN RESULT IS DESIRED, CALL CHEMISTRY ([phone]) AND REQUEST URINE TO BE SENT TO REFERENCE LAB. FOR A LIST OF CLOSELY RELATED COMPOUNDS PLEASE CALL THE LAB. Lab Order: Ethyl Alcohol (ethanol); SPEC' 08/25/16 10:43 Test: ETHYL ALCOHOL (ETHANOL); Value: < 0.003; Range: 0.000-0.010; Units: %; Status: F Lab Order: HCG,Serum Qualitative; SPEC' 08/25/16 10:43 Test: HCG, SERUM QUALITATIVE; Value: NEGATIVE; Range: NEGATIVE; Status: F Lab Order: Liver Profile; [facility]' 08/25/16 10:43 Test: AST/SGOT; Value: 15; Range: 15-37; Units: U/L; Status: F Test: ALT/SGPT; Value: 17; Range: 12-78; Units: U/L; Status: F Test: ALKALINE PHOSPHATASE; Value: 51; Range: 45-117; Units: U/L; Status: F Test: BILIRUBIN,TOTAL; Value: 0.4; Range: 0.2-1.0; Units: MG/DL; Status: F Test: BILIRUBIN,DIRECT; Value: 0.1; Range: 0.0-0.2; Units: MG/DL; Status: F Test: TOTAL PROTEIN; Value: 7.6; Range: 6.4-8.2; Units: GM/DL; Status: F Test: ALBUMIN; Value: 4.1; Range: 3.2-5.2; Units: GM/DL; Status: F Test: ALBUMIN/GLOBULIN RATIO; Value: 1.17; Range: 1.00-1.93; Status: F Lab Order: Salicylate Level; SPEC'M 08/25/16 10:43 Test: SALICYLATE LEVEL; Value: 2.8; Range: 5.0-30.0; Abnormal: Below low normal; Units: MG/DL; Status: F Lab Order: Thyroid Stimulating Hormone; SPEC'M 08/25/16 10:43 Test: THYROID STIMULATING HORMONE; Value: 0.006; Range: 0.358-3.740; Abnormal: Below low normal; Units: uIU/ML; Status: F Outcome: 12:57 Decision to Hospitalize by Provider. br1 14:02 Discharge Assessment: patient administered narcotics - no. The following High Risk ky3 Discharge criteria are identified: None. Admitted to Psych accompanied by tech, via wheelchair, with chart. Condition: stable. No special radiology studies were completed. 14:03 Patient left the ED. me3 Signatures: Brian Casas, Markus Reg Hugh Rodriguez, Security Aide TarahKhurram Casarez RN RN mlb1 Marina Joseph,MATEUSZ TRAFFIC TECHNICIAN me3 Delfin, Anna, PSA PSA ml4 Kye Harman MD MD br1 Leigh Painting Kathie klr Corrections: (The following items were deleted from the chart) 12:27 Disposition: Psychiatric Consult is performed by phone with Dr Vikas Guaman ml4 ml4 Chart Complete MTDD
[2016-08-27 18:00] VITALS: BP 127/83
--- NOTE | 2016-08-27 19:05 | ECGEPIP ---
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
[2016-08-28] MEDS: LEVOTHYROXINE 0.125 MG TAB (125 MCG) PO SCH (06:03)
[2016-08-28 06:49] VITALS: BP 128/83
[2016-08-28] MEDS: NICOTINE 7 MG/24 HR TRANSDERMAL TD SCH (08:10)
[2016-08-28] MEDS: buPROPion **XL** TABLET 150MG (WELLBUTRIN XL) PO SCH (08:13)
[2016-08-28] MEDS: FLUoxetine 20 MG CAP PO SCH (08:13)
[2016-08-28] MEDS: OMEGA-3 1050MG CAPSULE PO SCH (08:13)
[2016-08-28] MEDS: VITAMIN D 1,000 INTERNATIONAL UNITS TABLET PO SCH (08:13)
[2016-08-28] MEDS: VITAMIN B COMPLEX/VIT C CAP PO SCH (08:13)
[2016-08-28] MEDS: BENAZEPRIL 20 MG TAB PO SCH (08:13)
[2016-08-28] MEDS: amLODIPine 10 MG TAB PO SCH (08:14)
[2016-08-28 18:00] VITALS: BP 129/84
[2016-08-29] MEDS: LEVOTHYROXINE 0.125 MG TAB (125 MCG) PO SCH (05:51)
[2016-08-29 06:41] VITALS: BP 121/79
[2016-08-29] MEDS: OMEGA-3 1050MG CAPSULE PO SCH (08:24)
[2016-08-29] MEDS: VITAMIN D 1,000 INTERNATIONAL UNITS TABLET PO SCH (08:24)
[2016-08-29] MEDS: VITAMIN B COMPLEX/VIT C CAP PO SCH (08:24)
[2016-08-29] MEDS: amLODIPine 10 MG TAB PO SCH (08:24)
[2016-08-29] MEDS: BENAZEPRIL 20 MG TAB PO SCH (08:25)
[2016-08-29] MEDS: buPROPion **XL** TABLET 150MG (WELLBUTRIN XL) PO SCH (08:25)
[2016-08-29] MEDS: FLUoxetine 20 MG CAP PO SCH (08:25)
[2016-08-29] MEDS: NICOTINE 7 MG/24 HR TRANSDERMAL TD SCH (09:00)
[2016-08-29 18:00] VITALS: BP 133/91
[2016-08-30] MEDS: LEVOTHYROXINE 0.125 MG TAB (125 MCG) PO SCH (06:12)
[2016-08-30 06:34] VITALS: BP 137/82
[2016-08-30] MEDS: NICOTINE 7 MG/24 HR TRANSDERMAL TD SCH (08:12)
[2016-08-30] MEDS: VITAMIN D 1,000 INTERNATIONAL UNITS TABLET PO SCH (08:15)
[2016-08-30] MEDS: buPROPion **XL** TABLET 150MG (WELLBUTRIN XL) PO SCH (08:15)
[2016-08-30] MEDS: amLODIPine 10 MG TAB PO SCH (08:15)
[2016-08-30] MEDS: FLUoxetine 20 MG CAP PO SCH (08:16)
[2016-08-30] MEDS: OMEGA-3 1050MG CAPSULE PO SCH (08:16)
[2016-08-30] MEDS: VITAMIN B COMPLEX/VIT C CAP PO SCH (08:16)
[2016-08-30] MEDS: BENAZEPRIL 20 MG TAB PO SCH (08:16)
[2016-08-30 18:00] VITALS: BP 123/77
[2016-08-31] MEDS: LEVOTHYROXINE 0.125 MG TAB (125 MCG) PO SCH (06:16)
[2016-08-31 07:18] VITALS: BP 142/94
[2016-08-31 08:28] VITALS: BP 142/94
[2016-08-31] MEDS: NICOTINE 7 MG/24 HR TRANSDERMAL TD SCH (08:28)
[2016-08-31] MEDS: VITAMIN B COMPLEX/VIT C CAP PO SCH (08:28)
[2016-08-31] MEDS: buPROPion **XL** TABLET 150MG (WELLBUTRIN XL) PO SCH (08:28)
[2016-08-31] MEDS: BENAZEPRIL 20 MG TAB PO SCH (08:28)
[2016-08-31] MEDS: OMEGA-3 1050MG CAPSULE PO SCH (08:28)
[2016-08-31] MEDS: FLUoxetine 20 MG CAP PO SCH (08:28)
[2016-08-31] MEDS: VITAMIN D 1,000 INTERNATIONAL UNITS TABLET PO SCH (08:28)
[2016-08-31] MEDS: amLODIPine 10 MG TAB PO SCH (08:28)
[2016-08-31] MEDS ORDERED: LEVO125T3 PO (12:04)
[2016-08-31] MEDS ORDERED: NICO7PA TD (12:04)
[2016-08-31] MEDS ORDERED: TRAZO50TA PO (14:20)
[2016-08-31] MEDS ORDERED: BUPR150T3 PO (14:20)
[2016-08-31] MEDS ORDERED: FLUO20CA9 PO (14:20)
--- NOTE | 2016-10-17 18:55 | MHDS ---
DATE OF ADMISSION: 08/25/2016 DATE OF DISCHARGE: 08/31/2016 HISTORY OF PRESENT ILLNESS: This patient is presenting with the symptoms and signs of a progressive major depression. She has a history of previous episodes, usually related to stressful events. This patient's current episode began in July 2015 shortly after discovering that her best friend had committed suicide. This patient also is stressed by the care and tolerance that her with combat related posttraumatic stress disorder (PTSD) needs. 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 Her is still active at [employer] but he is going to be medically boarded sometime soon. She denies psychotic symptoms and a past history of geradro.This patient denies abuse of alcohol and other drugs. HOSPITAL COURSE: This patient was admitted involuntarily to the closed psychiatric unit at [facility]. She was placed under one-on-one observation as a suicide precaution. Her Wellbutrin 300 mg daily in the morning was continued. This medication was started by a psychiatrist at [employer]. She believes that she had a better response to Prozac in the past. It was elected to add Prozac to her current regimen. With the passage of time, the patient began to feel better. Her suicidal ideation abated and it was safe to allow her to engage the milieu more independently and she was encouraged to attend the group therapy sessions, both educational and process-oriented. The patient's sleep, interest level, energy level, and her appetite all improved. Her rumination about the of her best friend is lessening. DISCHARGE MENTAL STATUS EXAMINATION: She was appropriately dressed and groomed and there was no apparent physical distress. Her behavior was friendly and cooperative. Her psychomotor activity was unremarkable. Speech was articulate with normal rate and volume. Mood was good. Affect was mood congruent. Her thought process was lucid, linear, logical, and goal-directed; thought content was void of psychotic or lethal ideation. She denied hallucinations and body language did not suggest such Her insight is fair. Her judgment is good. Her impulse control is good. Cognition was grossly intact. She was oriented times three. She could remember three objects after five minutes of distraction. She had a normal fund of knowledge. Her intelligence quotient (IQ) was within the normal range. MEDICAL EVALUATION: While the patient was admitted, she underwent a medical evaluation which discovered a very low thyroid-stimulating hormone (TSH). She does have a history of hypothyroidism. Her levothyroxine dose was decreased. She was advised to get a repeat evaluation by her primary care provider (PCP), especially a TSH in 4-6 weeks. The rest of her laboratory studies were unremarkable. DISCHARGE DIAGNOSES: Psychiatric: Major depression, recurrent. Physical: 1. Hypothyroidism. 2. Hypertension. DISCHARGE PLAN: The patient [place] [employer]. Her psychotropic medication was continued. She was given a one week supply of both Wellbutrin XL 300 mg and Prozac 20 mg, both daily in the morning. She was also given a one week supply of trazodone 50 mg to be taken at bedtime as needed for insomnia. She was also given three refills. She is to continue her psychosocial management at [employer], namely psychotherapy. Attention should be given to grief and loss issues. Her lethal risk is low at this time and she has a sound safety plan. Her psychiatric discharge management lasted approximately 25 minutes. AILYN
== END 2016-08-31 14:45 | disposition home or self-care (01) | DRG 885 ==
LOC: M ED 10:14 → M PSY 14:12
PROVIDERS: ADMIT Psychiatry & Neurology Psychiatry; ATTEND Psychiatry & Neurology Psychiatry
DX: F33.2 Major depressive disorder, recurrent severe without psychotic features (principal); I10 Essential (primary) hypertension; E89.0 Postprocedural hypothyroidism; F17.210 Nicotine dependence, cigarettes, uncomplicated; G47.00 Insomnia, unspecified; L30.9 Dermatitis, unspecified; Z91.5 Personal history of self-harm; Z91.013 Allergy to seafood; Z79.899 Other long term (current) drug therapy

== ENCOUNTER → 2016-12-05 | Outpatient (CLI) | payer OTHER ==
[~2016-12-05] MED LIST: BUPR150T3 PO; BUPR300T34 PO; FISH1000 PO; FLUO20CA9 PO; LEVO125T3 PO; LEVO137T2 PO; LOTR10CA PO; NICO7PA TD; TRAZO50TA PO; VITA-121 PO; VITATAB11 PO
--- NOTE | 2016-12-05 13:06 | REPMRS ---
Patient History No known family history of cancer. The patient states she has not had a clinical breast exam in over a year. Digital Mammo Screening Bilat: December 05, 2016 - Exam #: [id number] Bilateral CC and MLO view(s) were taken. Technologist: Mariella Vera, Technologist Prior study comparison: April 25, 2015, bilateral digital mammo screening bilat performed at [facility]. December 11, 2012, digital bilateral screening mammo, performed at [place]. FINDINGS: There are scattered fibroglandular densities. There has been no change in the appearance of the mammogram from the prior studies. There is a mild amount of scattered fibroglandular density which is fairly symmetric. There is no interval development of dominant mass, architectural distortion, or clustered microcalcification suggestive of malignancy. ASSESSMENT: BI-RADS/ACR category 1 mammogram. Negative. Recommendation Routine screening mammogram in 1 year (for women over age 40). This mammogram was interpreted with the aid of an FDA-approved computer-aided dectection system. Electronically Signed By: Jorgito Murry MD 12/05/16 [id number]
== END ==
LOC: M RAD 09:49
PROVIDERS: ATTEND Internal Medicine
DX: Z12.31 Encounter for screening mammogram for malignant neoplasm of breast (principal)